=== PATIENT | female | born 1995 | race Asian ===

== ENCOUNTER 2022-01-12 07:19 | Emergency (ER) | payer OTHER, SELFPAY ==
[2022-01-12 07:51] VITALS: BP 149/73; PULSE 80; RESP 17; TEMP 36.6; O2SAT 99; BMI 32.9
[2022-01-12 08:58] LABS: Influenza A - CEPHEID Flu A NEGATIVE (NEGATIVE); Influenza B - CEPHEID Flu B NEGATIVE (NEGATIVE)
--- NOTE | 2022-01-12 09:55 | ED_ITS ---
HPI - URI/Sore Throat General Chief Complaint: Upper Respiratory Symptoms Stated Complaint: flu like symptoms Time Seen by Provider: 01/12/22 09:55 Source: patient Mode of arrival: Family Vehicle Limitations: no limitations History of Present Illness HPI Narrative: This is a 26-year-old female presents with fever for the past 2 days, nasal congestion, cough without any hemoptysis. Patient has had occasional post tussive emesis but not persistent. No diarrhea constipation, no urinary symptoms. She states she is had some cough for the past 3 weeks and her primary care gave her antibiotics and inhaler which she has been using. She finished the antibiotics several days ago was starting to improve had not had any fevers with that prior episode. 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 Patient denies active chest pain. Occasional shortness of breath. Patient also notes that she had a positive TB test that was a blood test likely a QuantiFERON that was ordered for screening because she works in assisted living. She is unaware of any exposures, she had does not work with high risk populations other than an assisted living, patient has not had any international travel or international travelers staying with her. Review of Systems Review of Systems ROS Unobtainable: All systems reviewed & are unremarkable except as noted in HPI and below Patient History Social History Smoking Status: Never smoker Smoking Status: Never smoker alcohol intake frequency: 0-2 drinks per day Substance Use Type: does not use Exam Narrative Exam Narrative: GEN: well nourished, well appearing female, alert and oriented x 3, patient appears to be in mild distress. HEENT: Atraumatic, pupils are equal round reactive to light, extraocular movements are intact, mild nasal rhinorrhea, TMs are clear with no fluid, there is no conjunctival pallor. Throat is clear without any exudates, erythema, tonsillar enlargement or uvular deviation HEART: Regular rate and rhythm without murmur, clicks, rubs. LUNGS:Lungs clear to auscultation, no wheezes, rales, crackles, chest moves symmetrically, no tachypnea accessory muscle use, occasional dry cough, no difficulty with speech. ABD:bowel sounds normal, soft, non-tender, no guarding, rebound, rigidity, no masses noted, no hepatosplenomegaly :No CVA tenderness MSCL: full range of motion, normal gait NEURO:CN 2-12 intact, sensation normal Initial Vital Signs Initial Vital Signs: Vital Signs Temperature 98 F 01/12/22 07:51 Pulse Rate 80 01/12/22 07:51 Respiratory Rate 17 01/12/22 07:51 Blood Pressure 149/73 H 01/12/22 07:51 Pulse Oximetry 99 01/12/22 07:51 Oxygen Delivery Method 01/12/22 07:51 Course Orders Ordered: ED Orders 01/12/22 10:11 Chest [XR chest 2V] Stat Vital Signs Vital signs: Vital Signs - 8 hr 01/12/22 07:51 Temperature 98 F Pulse Rate 80 Respiratory Rate 17 Blood Pressure 149/73 H Pulse Oximetry 99 Oxygen Delivery Method Room Air MDM - URI/Sore Throat Lab Data Labs: Lab Results 01/12/22 Range/Units 08:00 SARS-CoV-2 (PCR) Negative (Negative) Influenza A (RT-PCR) Flu a negative (NEGATIVE) Influenza B (RT-PCR) Flu b negative (NEGATIVE) RSV (PCR) Positive A (Negative) Imaging Data Chest x-ray: Radiologist's Impression: [address] [address] XRay Report Signed Patient: Millicent Knutson MR#: [id number] : 1995 Acct:[id number] Age/Sex: 26 / F Date of Service: 01/12/22 Loc: ED Accession Number: [id number] ?? Procedure: XR chest 2V Ordering Provider: Juliana Vasquez D.O. PROCEDURE:? XR CHEST 2V ? INDICATIONS:? + RSV, patient also had + tb test on screening.? No exposure ? TECHNIQUE:? 2 views of the chest were acquired.? ? COMPARISON:? None. ? FINDINGS:? ? Surgical changes and devices:? None.? ? Lungs and pleura:? Lungs are clear.? No pleural effusions or pneumothorax.? ? Mediastinum:? Mediastinal contours are normal.? Heart size is normal.? ? Bones and chest wall:? No suspicious bony abnormalities.? Soft tissues appear unremarkable.? ? IMPRESSION:? Normal two view chest x-ray ? ? ? Approved by: Sebastian Bauer M.D. on 01/12/2022 at 9:59? 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 She is had fevers that are new for the past several days and nasal congestion and cough. She is had cough for about 3 weeks was on antibiotics I suspect that she had some form a respiratory illness and has not caught new illness with her respiratory panel showing RSV. There is significant mount in the community currently. Patient otherwise appears stable. Discussed with patient if chest x-ray does not show active signs consistent with potential TB will need to follow-up for clearance. Discharge Plan Departure Patient Disposition: Home Clinical Impression: RSV (respiratory syncytial virus infection) Instructions: DI for Respiratory Syncytial Virus -- Adults Activity Restrictions/Additional Instructions: Your swab today is positive for RSV. This is likely the cause of her most recent fevers and respiratory symptoms. This is a viral illness that is quite common and there is a lot in the community currently. Your chest x-ray was negative for acute changes. This is overall reassuring from a TB perspective. Please follow-up with your physician about final clearance for your TB test. Recommend Tylenol and/or ibuprofen for fevers or muscle aches. You can use your home inhaler if needed. Please return for rapidly worsening symptoms, shortness of breath that is worsening, increasing chest pain, passing out, persistent vomiting, black or bloody stools, coughing up blood or other new or concerning changes. Visit Report Forms: Patient Portal/API
[2022-01-12 10:03] LABS: COVID-19 CEPHEID 4-PLEX PCR Negative (Negative)
[2022-01-12 10:04] LABS: Respiratory Syncytial Virus POSITIVE (Negative)
--- NOTE | 2022-01-12 10:11 | DI.RAD.S_ITS ---
PROCEDURE: XR CHEST 2V INDICATIONS: + RSV, patient also had + tb test on screening. No exposure TECHNIQUE: 2 views of the chest were acquired. COMPARISON: None. FINDINGS: Surgical changes and devices: None. Lungs and pleura: Lungs are clear. No pleural effusions or pneumothorax. Mediastinum: Mediastinal contours are normal. Heart size is normal. Bones and chest wall: No suspicious bony abnormalities. Soft tissues appear unremarkable. IMPRESSION: Normal two view chest x-ray Approved by: Sebasitan Bauer M.D. on 01/12/2022 at 9:59
== END 2022-01-12 11:19 | disposition home or self-care (01) ==
PROVIDERS: Emergency Provider Emergency Medicine
DX: J06.9 Acute upper respiratory infection, unspecified (principal); B97.4 Respiratory syncytial virus as the cause of diseases classified elsewhere; Z20.822 Contact with and (suspected) exposure to COVID-19
CPT/HCPCS: 0241U; 71046; 99283